=== PATIENT | female | born 1950 | race Caucasian/White ===

== ENCOUNTER → 2016-07-30 | Outpatient (CLI) | payer OTHER | LOC: MMPC 11:11 | PROVIDERS: ATTEND Physician Assistant | DX: M26.622 Arthralgia of left temporomandibular joint (principal) | CPT/HCPCS: 99213; G0463 ==

== ENCOUNTER 2016-10-02 15:30 | Emergency (ER) | payer OTHER ==
[2016-10-02 15:51] VITALS: RESP 18; TEMP 97.1
[2016-10-02] MEDS ORDERED: NORMAL SALINE 10 ML SYRINGE FLUSH IVP PRN (15:55)
[2016-10-02] MEDS ORDERED: ONDANSETRON 4 MG/2 ML VIAL IVP ONE (15:55)
[2016-10-02] MEDS ORDERED: Sodium Chloride 0.9% 1,000 ML PRIMARY IV ONE (15:55)
--- NOTE | 2016-10-02 16:27 | EKG ---
[address] [address] Measurements Intervals [place] Rate: 70 P: 46 NH: 182 QRS: 48 QRSD: 81 T: 37 QT: 391 QTc: 412 Interpretive Statements SINUS RHYTHM Compared to ECG 02/08/2014 12:14:44 No significant changes Electronically Signed On 10-02-16 16:52:52 MDT by Paul Spaulding [email or web address]
[2016-10-02 16:36] LABS: BASOPHILS # (AUTO) 0.05 10*3/UL; BASOPHILS % (AUTO) 0.6 % (0-1); EOSINOPHILS # (AUTO) 0.07 10*3/UL; EOSINOPHILS % (AUTO) 0.8 % (0-8); HEMATOCRIT 37.1 % (37.0-47.0); HEMOGLOBIN 12.2 g/dL (12.0-16.0); LYMPHOCYTES # (AUTO) 1.61 10*3/uL; MEAN CORPUSCULAR HEMOGLOBIN 29.8 PG (27-31); MEAN CORPUSCULAR HGB CONC 32.9 g/dL (33-37); MEAN CORPUSCULAR VOLUME 90.5 FL (81-99); MEAN PLATELET VOLUME 9.9 FL (7.4-12.2); MONOCYTES # (AUTO) 0.62 10*3/UL (0.3-0.8); MONOCYTES % (AUTO) 7.1 % (5-15); NEUTROPHILS # (AUTO) 6.41 10*3/UL
[2016-10-02 16:37] LABS: PLATELET MORPHOLOGY COMMENT NORMAL MORPHOLOGY (NORM); RBC MORPHOLOGY COMMENT NORMAL MORPHOLOGY (NORM); WBC MORPHOLOGY COMMENT NORMAL MORPHOLOGY (NORM)
[2016-10-02 16:45] LABS: BLOOD UREA NITROGEN 17 mg/dL (7-22); BUN/CREATININE RATIO 21.25 (6-20); EST GLOMERULAR FILTRATION > 60 (>60 ml/min/1.73m(2)); SERUM ALBUMIN 4.1 g/dL (3.5-4.8)
--- NOTE | 2016-10-02 17:14 | DI ---
CT HEAD W/O CONTRAST,10/02/2016 3:55 PM: Clinical History: Vertigo and headache. Previous Exam: None at this facility. Findings: Multiple helically acquired CT images are obtained through the brain without contrast, and demonstrat e normal, symmetric ventricles and other CSF containing spaces. There is no mass, hemorrhage or midli ne shift. Surrounding soft tissue and osseous structures are unremarkable. Impression: No acute intracranial pathology.
--- NOTE | 2016-10-02 17:17 | DI ---
XR HIP COMPLETE MIN 2VW U/L,10/02/2016 3:58 PM: Clinical History: Trauma Previous Exam: None at this facility. Findings: AP and frog-leg views of the right hip are obtained, and demonstrate anatomic alignment without fract ures. Surrounding soft tissues are unremarkable. Impression: No fracture.
[2016-10-02 17:18] LABS: BILIRUBIN,URINE NEGATIVE (NEG); COLOR,URINE YELLOW; GLUCOSE, URINE (UA) NEGATIVE (NEG); NITRATE,URINE NEGATIVE (NEG); OCCULT BLOOD,URINE Trace-lysed (NEG); PROTEIN,URINE NEGATIVE (NEG); UROBILINOGEN,URINE 0.2 mg/dL (0.2)
[2016-10-02 17:20] LABS: CLARITY,URINE CLEAR (CLEAR); RBC,URINE 0 /hpf; SQUAMOUS EPITHELIAL CELL,UR RARE; URINE SAMPLE TYPE CLEAN CATCH URINE; WBC,URINE 0-1
--- NOTE | 2016-10-03 07:36 | PDOC ---
Dizziness HPI - General Chief Complaint: Lower Extremity Problem/Injury Stated Complaint: dizziness Date Seen by Provider: 10/02/16 Time Seen by Provider: 15:35 Source: POSITIVE: Patient Exam Limitations: POSITIVE: No limitations Nurse's Notes Reviewed & Considered: Yes - History of Present Illness Initial Comments: The patient is a 66-year-old female. 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 She had some associated vomiting for about 10 minutes. She states she feels better on presentation to the emergency room. She also states that this morning around 9 AM she was standing some cows and was kicked by a cattle in the medial aspect of her right upper thigh. She has been ambulatory since. She sustained no head trauma or any other trauma. No head chest or abdominal pain. No hematemesis. No hearing changes or focal neurologic symptoms. 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 Patient states that her "dizziness"is exacerbated by head movement, but is considerably less on presentation to the emergency room that it was at onset.) Quality: REPORTS: "Pain" (Contusion and some local discomfort on palpation medial aspect of right upper thigh), Other (Vertigo) Associated Symptoms: REPORTS: Nausea, Vomiting, Movement Sense - Distinct, Sense of Spinning. DENIES: Hearing Loss, Ringing in Ear(s), Roaring in Ear(s), Ear Pain, Sense of Falling, Movement Sense - Vague, Headache, Weakness, Numbness , Diaphoresis, Light Headedness, Fainting, Near Fainting, While Sitting, While Standing, While Supine, With Position Change, Sense of Confusion, Other Current Ability to Walk/Stand: REPORTS: Walks w/o Assistance Usual Ability to Walk/Stand: DENIES: Walks w/o Assistance, Cane Use, Walker Use , Walks only w/ Assistance, Stands for Transfers, Unable to Walk, Bed Ridden, Unable to Sit, Other Aggrevated by: REPORTS: Position Changes, Movement of Head Similar Symptoms Previously: No Recently seen/treated/hospitalized: No Any Prior Injuries Related to Current Complaint?: No - Patient Home Medications Home Medications: Home Medications Citalopram Hydrobromide [Citalopram Hbr] 20 mg PO DAILY #90 tab 03/27/16 Levothyroxine Sodium [Synthroid] 100 mcg ORAL QD #90 tab 03/27/16 Naproxen [Naprosyn] 500 mg PO BID #60 tab 03/27/16 Meclizine HCl 25 mg PO Q6H PRN #10 tablet 10/02/16 - Patient Allergies Allergies/Adverse Reactions: Allergies Allergy/AdvReac Type Severity Reaction Status Date / Time acetaminophen [From Percocet] Allergy Intermediate vomiting Verified 10/02/16 15 :36 oxycodone HCl [From Percocet] Allergy Intermediate vomiting Verified 10/02/16 15 :36 Past Medical History - heen HEENT History: Denies History Cardiovascular History: Denies History Respiratory History: Denies History Gastrointestinal History: GERD Genitourinary History: Denies History Endocrine History: Hypothyroidism Musculoskeletal History: Denies History Prosthesis or Implant: No Neurological History: Denies History Blood Disorders: Denies History Psychiatric History: Depression History of Sexually Transmitted Diseases: No Female Reproductive History: Denies History Obstetrical History: Denies History Cancer History: Denies History In Past Year Been Physically Harmed or Verbally Threatened: No History of MDRO: No History of Other Communicable Diseases: No Tobacco Use: Never Smoker Alcohol Use: Rarely Substance Use Type: None Previous Surgical History: Yes Type / Date of Surgery: Back,hyst, appy, left wrist Significant Family History: No pertinent family hx Past Medical History Reviewed: Reviewed - No Changes ROS - Limitations ROS Limitations: No Limitations Constitution: REPORTS: Denies Symptoms Cardiovascular: REPORTS: Denies Cardiac Symptoms Respiratory: REPORTS: Denies Resp Symptoms Neurological: REPORTS: Denies Neuro Symptoms Gastrointestinal: REPORTS: Denies GI Symptoms Endocrine: REPORTS: Denies Symptoms Musculoskeletal: REPORTS: Denies MS Symptoms Genitourinary: REPORTS: Denies Symptoms Eyes: REPORTS: Denies Symptoms ENT: REPORTS: Denies Symptoms Skin: REPORTS: Denies Skin Symptoms Lympathic: REPORTS: Denies Lympathic Symptoms Immunologic: POSITIVE: Denies Symptoms Psychiatric: POSITIVE: Denies Psych Symptoms Dizziness PE - General Appearance General Appearance: POSITIVE: No Acute Distress, Alert - HEENT HEENT: POSITIVE: Head Inspection Nml, Ears Inspection Nml, Nose Inspection Nml, Oral/Dental Inspect. Nml, Pharynx Inspect. Nml, PERRL, EOMI. NEGATIVE: Eyes Inspection Nml (Some lateral nystagmus with rapid damping. No vertical nystagmus) - Pupil Size Pupil Size: 4 mm: Bilateral (PERRLA) - Neck Neck: POSITIVE: Supple - Respiratory Respiratory: POSITIVE: No Respiratory Distress, Breath Sounds Normal - Cardiovascular Cardiovascular: POSITIVE: Regular Rate & Rhythm, No Murmur, No Gallop, Heart Sounds Normal Peripheral Pulses: Radial (R): 2+, Radial (L): 2+ - Abdomen Abdomen: Soft: (All Quadrants), Normal Bowel Sounds: (All Quadrants), Denies Tenderness: (All Quadrants), No Splenomegaly: (All Quadrants), No Hepatomegaly: (All Quadrants), No Guarding: (All Quadrants), No Rebound: (All Quadrants), No Palpable Pulse: (All Quadrants), No Palpabale Mass: (All Quadrants), No Distention: (All Quadrants), No Rigidity: (All Quadrants) - Skin Skin: POSITIVE: Intact, Normal For Race, Warm, Dry, No Rash - Extremities Extremity: Non-Tender: (All Extremities), Normal ROM: (All Extremities), Normal Inspection: (RUE), (LUE), (LLE), Pelvis Stable: (All Extremities), Normal Tendon Exam: (All Extremities), Edema / Swelling: (All Extremities), Calf Tenderness: (All Extremities), Positive Honey's Sign: (All Extremities), Tender : (RLE) Additional Extremities Details: Examination of the extremities is normal except for a contusion to the medial aspect of the right upper thigh with some local palpable tenderness. - Neuro/Psych Neuro/Psych: POSITIVE: Alert, Affect Appropriate, Mood Appropriate, Normal Speech, Normal Cognition Cranial Nerves: POSITIVE: Normal As Tested, No Evidence of Acute CVA Cerebellar: POSITIVE: Normal As Tested Sensorimotor: POSITIVE: No Motor Deficits, No Sensory Deficits, Reflexes Normal Images - Lower Extremities Lower Extremities: 1 - Contusion Dizziness Progress - Results Reviewed by me Mirthaays/CTs/US Reviewed by me: Yes Discussed with Radiologist: Yes Radiology Findings: CT scan head normal. X-ray right hip normal. Lab Results Reviewed: Yes Lab Results:: Laboratory Results 10/02/16 10/02/16 Range/Units 16:30 17:06 WBC 8.77 (4.8-10.8) 10^3/uL RBC 4.10 L (4.20-5.40) 10^6/uL Hgb 12.2 (12.0-16.0) g/dL Hct 37.1 (37.0-47.0) % MCV 90.5 (81-99) FL MCH 29.8 (27-31) PG MCHC 32.9 L (33-37) g/dL RDW Std Deviation 42.6 (39-50) fL RDW Coeff of [place] 13.2 (11.5-14.5) % Plt Count 175 (140-350) 10*3/uL MPV 9.9 (7.4-12.2) FL Immature Gran % (Auto) 0.1 (0-5) % Neut % (Auto) 73.0 (50-80) % Lymph % (Auto) 18.4 (10-50) % [place] % (Auto) 7.1 (5-15) % Eos % (Auto) 0.8 (0-8) % Baso % (Auto) 0.6 (0-1) % Immature Gran # (Auto) 0.01 10*3/UL Neut # (Auto) 6.41 10*3/UL Lymph # (Auto) 1.61 10*3/uL [place] # (Auto) 0.62 (0.3-0.8) 10*3/UL Eos # (Auto) 0.07 10*3/UL Baso # (Auto) 0.05 10*3/UL WBC Morphology Comment Normal morphology (NORM) Plt Morphology Comment Normal morphology (NORM) RBC Morph Comment Normal morphology (NORM) Sodium 139 (135-145) meq/L Potassium 4.6 (3.8-5.2) meq/L Chloride 102 (98-112) meq/L Carbon Dioxide 25 (23-33) meq/L Anion Gap 12 (5-20) BUN 17 (7-22) mg/dL Creatinine 0.8 (0.50-1.20) mg/dL Estimated GFR > 60 (>60 ml/min/1.73m(2)) BUN/Creatinine Ratio 21.25 H (6-20) Glucose 92 (78-110) mg/dL Calculated Osmolality 289.0 (267-292) mOsm/kg Calcium 9.0 (8.7-10.7) mg/dL Total Bilirubin 0.9 (0.3-1.2) mg/dL AST 38 (8-39) IU/L ALT 28 (9-52) IU/L Alkaline Phosphatase 99 (38-126) IU/L Total Protein 8.0 (6.1-8.0) g/dL Albumin 4.1 (3.5-4.8) g/dL Globulin 3.9 (2.50-4.10) g/dL Albumin/Globulin Ratio 1.00 L (1.3-2.0) mg/g Ur Collection Type Clean catch urine Urine Color Yellow Urine Clarity Clear (CLEAR) Urine pH 7.0 (5.0-8.5) Ur Specific [place] 1.015 (1.005-1.030) Urine Protein Negative (NEG) mg/dl Urine Glucose (UA) Negative (NEG) mg/dL Urine Ketones Negative (NEG) Urine Occult Blood Trace-lysed (NEG) Urine Nitrate Negative (NEG) Urine Bilirubin Negative (NEG) Urine Urobilinogen 0.2 (0.2) mg/dL Ur Leukocyte Esterase Trace (NEG) Urine RBC 0 (NONE) /hpf Urine WBC 0-1 (NONE) Ur Squamous Epith Cells Rare (NONE) Ur Renal Epithelial Cell None (NONE) Urine Crystals None Urine Bacteria None (NONE) Urine Casts None Urine Mucus Rare (NONE) Urine Trichomonas None (NONE) Urine Yeast None (NONE) EKG Interpreted/Reviewed By Me:: Yes (normal) EKG Interpretation:: POSITIVE: Normal Sinus Rhythm, Normal Rate, Normal Intervals, Normal [place], Normal QRS, Normal ST/T - Patient's Progress Pain Medication Addressed: POSITIVE: Not Applicable School/Work Release Addressed: POSITIVE: Not Applicable Re-Examine Time:: 17:45 Re-Examine Comment: Patient hydrated with normal saline and given Zofran for her nausea. Her vertigo and nausea have resolved upon discharge. Status: POSITIVE: Improved, Re-Examined (Patient asymptomatic on discharge.) - Consult Counseled: POSITIVE: Patient, Family, RE: Lab Results, RE: Radiology Results, RE : DX, RE: Need for F/U Patient Care Time - Estimated PCT Patient Care Time (In Minutes): 45 Vital Signs - VS Reviewed Vital Signs Reviewed: Yes Discharge Clinical Impression: Vertigo, Contusion of leg, right Discharge Disposition: Discharged to Home Condition: Fair Prescriptions / Orders: Meclizine HCl 25 mg PO Q6H PRN #10 tablet PRN Reason: Dizziness Patient Instructions Given at Discharge: Vertigo (ED), Contusion in Adults (ED) Additional Instructions: I believe you're dizziness was caused by what is known as benign positional vertigo. This is a condition of the inner ear, which occurs with progressive frequency as we age. This can be quite distressing, but it is usually not serious. I'm glad you are feeling better. Rest today. You may have 1 meclizine every 6 hours as necessary for dizziness or vertigo. You have a contusion or you're kicked by a cow earlier today on your upper leg. X-rays were normal. Follow-up with your primary care provider. Return here anytime if condition worsens in any way. Follow Up With: SHAMA URBAN FNP [Primary Care Provider] - (Instructions as above. Follow- up with your primary care provider. Return here as necessary.)
== END 2016-10-02 18:04 | disposition home or self-care (01) ==
LOC: ER 15:30
DX: R42 Dizziness and giddiness (principal); M79.651 Pain in right thigh; S70.11XA Contusion of right thigh, initial encounter; W55.22XA Struck by cow, initial encounter
CPT/HCPCS: 70450; 73502; 80053; 81001; 85025; 93005; 93010; 96361; 96374; 99284; J2405; J7030